=== PATIENT | male | born 1990 | race Caucasian/White ===

== ENCOUNTER 2018-09-29 15:57 | Emergency (ER) | payer OTHER ==
[~2018-09-29] VITALS: Ht 170.2 cm; Wt 97.5 kg
== END 2018-09-29 18:09 | disposition home or self-care (01) ==
LOC: ER 15:57
DX: R21 Rash and other nonspecific skin eruption (principal); T78.49XA Other allergy, initial encounter

== ENCOUNTER 2018-10-12 16:07 | Emergency (ER) | payer OTHER ==
[~2018-10-12] VITALS: Ht 170.2 cm; Wt 95.3 kg
== END 2018-10-12 20:46 | disposition home or self-care (01) ==
LOC: ER 16:07
DX: J11.1 Influenza due to unidentified influenza virus with other respiratory manifestations (principal)